=== PATIENT | female | born 1965 | race Hispanic/Latino ===

== ENCOUNTER 2018-02-03 12:39 | Inpatient (IN) | payer MEDICARE, OTHER ==
--- NOTE | 2018-02-03 12:55 | Emergency Department Report ---
ED Asthma HPI - General Chief Complaint: Adult Asthma Stated Complaint: DIFFICULTY BREATHING Time Seen by Provider: 02/03/18 12:53 Source: patient Mode of arrival: Ambulatory Limitations: No Limitations - History of Present Illness Initial Comments: Patient complains of shortness of breath typical for asthma, onset over the past day, with symptoms progressing over the night, and unrelieved by usual rescue inhalers at home. She does not have nebulizers at home. Attacks are infrequent, and last episode was approximately 16 months earlier. Patient is a daily smoker, 20 pack years, and is also HIV positive since 2002. She has not had any fever symptoms, and no cough or congestion prior to onset. She's not had any known exposures either. CD4 count is 1300, and viral load is undetectable, with patient antiretroviral regimen. Diabetes is controlled with diet, with patient checking glucose approximately twice a week, and it runs in the 110-140 range. Primary care doctor is Dr. Aleksandar Aceves, in [place], for primary care; Dr. 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 Only other significant past medical history is diabetes mellitus, which is diet controlled. Onset/Timin -: Gradual, days(s) Asthma History: adult onset Severity: moderate Context: none known Associated Symptoms: none. denies: dry cough, fever - Related Data Current Asthma Therapy: inhaled bronchodilator Allergies Allergy/AdvReac Type Severity Reaction Status Date / Time No Known Allergies Allergy Unverified 02/03/18 12:42 ED Review of Systems ROS: Stated complaint: DIFFICULTY BREATHING Other details as noted in HPI Comment: All other systems reviewed and negative Constitutional: no symptoms reported ENT: denies: throat pain Respiratory: shortness of breath, wheezing. denies: cough Cardiovascular: denies: chest pain, syncope Endocrine: no symptoms reported Gastrointestinal: denies: abdominal pain, nausea, diarrhea Musculoskeletal: denies: back pain, joint swelling, arthralgia Skin: denies: rash, lesions Neurological: denies: headache, weakness, paresthesias Psychiatric: denies: anxiety, depression Hematological/Lymphatic: denies: easy bleeding, easy bruising ED Past Medical Hx - Past Medical History Hx Diabetes: Yes Hx Psychiatric Treatment: (bipolar) Hx Asthma: Yes Hx HIV: Yes Additional medical history: Back pain - Social History Smoking Status: Current Every Day Smoker ED Physical Exam - General Limitations: No Limitations General appearance: alert, in distress (moderate respiratory distress, but able to speak full sentences fairly easily.) - Head Head exam: Present: atraumatic, normocephalic - Eye Eye exam: Present: PERRL, EOMI - ENT ENT exam: Present: normal exam, mucous membranes moist - Neck Neck exam: Present: normal inspection. Absent: tenderness, meningismus - Respiratory Respiratory exam: Present: respiratory distress, wheezes. Absent: rales, rhonchi - Cardiovascular Cardiovascular Exam: Present: regular rate, tachycardia - GI/Abdominal GI/Abdominal exam: Present: soft, normal bowel sounds. Absent: tenderness, rebound - Extremities Exam Extremities exam: Present: normal inspection, other (obese,). Absent: pedal edema - Neurological Exam Neurological exam: Present: alert, oriented X3, CN II-XII intact. Absent: motor sensory deficit - Psychiatric Psychiatric exam: Present: normal affect, normal mood - Skin Skin exam: Present: warm, dry ED Course Vital Signs 02/03/18 02/03/18 02/03/18 12:42 13:20 13:33 Temperature 36.8 C Pulse Rate 116 H Pulse Rate [ 116 H 117 H Anterior Bilateral Throughout] Respiratory 17 Rate Respiratory 18 18 Rate [Anterior Bilateral Throughout] Blood Pressure 120/78 O2 Sat by Pulse 91 Oximetry - Reevaluation(s) Reevaluation #1: 02/03/18 14:12 Only modestly improved after 5 mg albuterol inhaler. Still feels symptomatically short of breath. Patient has extensive bilateral wheezes on auscultation, little improved from baseline. O2 saturation 93% on 2 L of oxygen, patient remains tachycardic at 116 bpm but reports that her heart rate is normally fast. 02/03/18 14:25 02/03/18 15:06 Reevaluation #2: 02/03/18 15:23 Patient is again only modestly improved with second round of albuterol, blood gas shows that patient is still hypoxic on room air, and is also relatively retaining with PO2 of 50, PCO2 of 44, pH of 7.44, with patient tachypneic and still relatively breathless. ED Medical Decision Making - Lab Data Result diagrams: 02/03/18 13:20 02/03/18 Unknown - Radiology Data interpreted by me: No acute cardiopulmonary abnormality on chest x-ray, heart size is normal, no pulmonary vascular congestion. - Medical Decision Making This patient with COPD, and asthma, with comorbidities of diabetes mellitus and HIV is exacerbation of difficulty breathing, this significantly hypoxic, and remained so after 2 rounds of intensive albuterol bronchodilation. She will need hospitalization for further care and continued treatment. - Differential Diagnosis pneumonia, bronchitis, COPD exacerbation, asthma, heart failure Critical Care Time: Yes Critical care time in (mins) excluding proc time.: 30 Critical care attestation.: If time is entered above; I have spent that time in minutes in the direct care of this critically ill patient, excluding procedure time. Critical Care Time: 30 minutes of critical care time was provided and assessing and stabilizing this patient, as well as provide initial treatments for clearing of her respiratory asthma and hypoxemia. ED Disposition Clinical Impression: COPD with exacerbation, Hypoxemia, HIV (human immunodeficiency virus infection) Diabetes mellitus Qualifiers: Diabetes mellitus type: type 2 Diabetes mellitus assisted insulin use: without terminal carman use Diabetes mellitus complication status: without complication Qualified Code(s): E11.9 - Type 2 diabetes mellitus without complications Disposition: 09 OP ADMIT IP TO THIS HOSP Is pt being admited?: Yes Does the pt Need Aspirin: No Condition: Stable Instructions: Chronic Obstructive Pulmonary Disease (ED), Diabetes Mellitus Type 2 in Adults (ED) Referrals: PRIMARY CARE, [Primary Care Provider] - 3-5 Days Time of Disposition: 15:38
[2018-02-03] MEDS ORDERED: PROVENTIL IH ONE ×2 (13:00→14:05)
[2018-02-03] MEDS ORDERED: ATROVENT IH ONE ×2 (13:01→17:26)
[2018-02-03 13:38] LABS: Basophils % (Auto) 0.7 % (0.0-1.8); Eosinophils # (Auto) 0.1 K/mm3 (0.0-0.4); Eosinophils % (Auto) 1.8 % (0.0-4.3); Hematocrit 44.4 % (30.3-42.9); Lymphocytes # (Auto) 1.4 K/mm3 (1.2-5.4); Lymphocytes % (Auto) 22.3 % (13.4-35.0); Mean Corpuscular HGB Conc 34 % (30-34); Mean Corpuscular Hemoglobin 31 pg (28-32); Mean Corpuscular Volume 92 fl (79-97); Monocytes # (Auto) 0.8 K/mm3 (0.0-0.8); Monocytes % (Auto) 13.8 % (0.0-7.3); Platelet Count 215 K/mm3 (140-440); Red Blood Count 4.81 M/mm3 (3.65-5.03); Red Cell Distribution Width 13.7 % (13.2-15.2)
[2018-02-03] MEDS ORDERED: NACL 0.9% IV ONE (14:08)
[2018-02-03] MEDS ORDERED: MAGNESIUM SULFATE IV ONE (14:08)
[2018-02-03 14:41] LABS: Alanine Aminotransferase 24 units/L (7-56); Albumin 4.3 g/dL (3.9-5); BUN/Creatinine Ratio 13; Blood Urea Nitrogen 9 mg/dL (7-17); Calcium 9.6 mg/dL (8.4-10.2); Hemolysis Index 9
[2018-02-03] MEDS ORDERED: NACL 0.9% 1000 ML 1,000 ML IV ONE (15:19)
[2018-02-03] MEDS ORDERED: PROVENTIL IH PRN (15:39)
[2018-02-03] MEDS ORDERED: SODIUM CHLORIDE FLUSH SYRINGE 10 ML IV PRN (15:39)
[2018-02-03] MEDS ORDERED: ZOFRAN IV PRN (15:39)
[2018-02-03] MEDS ORDERED: D50W (25GM) Syringe IV PRN (15:43)
--- NOTE | 2018-02-03 15:52 | History and Physical Report ---
History of Present Illness Chief complaint: I cant breathe History of present illness: 52 YO Female with HIV, Nicotine Dependence, Obesity Hypoventilation, MO, DM, Bipolar Disorder, Asthma presents to ED for evaluation. PT states that she has experienced shortness of breath over the past 1 day with worsening symptoms over the past 8 hours. Pt states that she has increased inhaler use without improvement. Pt denies fever, chills, CP, Palpitations, NVD, Syncope, BRBPR, Productive Cough, leg swelling, calf pain, unintentional weight loss, night sweats, prolonged travel/immobility, individual/family history of DVT/PE, skin rash, or recent ill contacts. Pt seen and evaluated in ED and found to have Acute Respiratory Failure secondary to Asthma Exacerbation. Pt admitted to medical floor. Past History Past Medical History: diabetes, HIV/AIDS, other (asthma, obesity hypoventilation ) Past Surgical History: No surgical history, Other (reviewed) Social history: single, smoking Family history: no significant family history (reviewed) Medications and Allergies Allergies Allergy/AdvReac Type Severity Reaction Status Date / Time No Known Allergies Allergy Unverified 02/03/18 12:42 Active Meds: Active Medications Sodium Chloride (Nacl 0.9% 1000 Ml) 1,000 mls @ 125 mls/hr IV ONCE ONE Stop: 02/03/18 23:18 Review of Systems Constitutional: no weight loss, no weight gain, no fever, no chills Ears, nose, mouth and throat: no ear pain, no ear discharge, no tinnitis, no decreased hearing, no nasal congestion Breasts: no change in shape, no swelling, no mass Cardiovascular: no chest pain, no orthopnea, no palpitations, no rapid/ irregular heart beat Respiratory: shortness of breath, wheezing, no cough, no cough with sputum, no excessive sputum Gastrointestinal: no abdominal pain, no nausea, no vomiting, no diarrhea Genitourinary Female: no dyspareunia, no dysmenorrhea, no pelvic pain, no flank pain, no menorrhagia Rectal: no pain, no incontinence, no bleeding Musculoskeletal: no neck stiffness, no neck pain, no shooting arm pain, no arm numbness/tingling, no low back pain, no shooting leg pain, no leg numbness/ tingling Integumentary: no rash, no pruritis, no redness, no sores, no wounds, no jaundice Neurological: no head injury, no transient paralysis, no paralysis, no weakness , no parathesias, no numbness, no tingling, no seizures Psychiatric: no anxiety, no memory loss, no change in sleep habits, no sleep disturbances, no insomnia, no hypersomnia, no change in appetite, no change in libido Endocrine: no cold intolerance, no heat intolerance, no polyphagia, no excessive thirst, no polydipsia, no polyuria, no nocturia Hematologic/Lymphatic: no easy bruising, no easy bleeding, no lymphadenopathy, no lymphedema Allergic/Immunologic: no urticaria, no allergic rhinitis, no wheezing, no persistent infections, no anaphylaxis Exam - Constitutional Vitals: Temp Pulse Resp BP Pulse Ox 98.2 F 117 H 18 120/78 91 02/03/18 12:42 02/03/18 15:24 02/03/18 15:24 02/03/18 12:42 02/03/18 12:42 General appearance: Present: mild distress, obese - EENT Eyes: Present: PERRL ENT: hearing intact, clear oral mucosa - Neck Neck: Present: supple, normal ROM - Respiratory Respiratory: bilateral: diminished, wheezing - Cardiovascular Heart Sounds: Present: S1 & S2. Absent: rub, click - Extremities Extremities: pulses symmetrical, No edema Peripheral Pulses: within normal limits - Abdominal General gastrointestinal: Present: soft, non-tender, non-distended, normal bowel sounds Female genitourinary: Present: normal - Integumentary Integumentary: Present: clear, warm, dry - Musculoskeletal Musculoskeletal: gait normal, strength equal bilaterally - Psychiatric Psychiatric: appropriate mood/affect, intact judgment & insight - Neurologic Neurologic: CNII-XII intact, moves all extremities Results - Labs CBC & Chem 7: 02/03/18 13:20 02/03/18 Unknown Labs: Abnormal lab results 02/03/18 02/03/18 02/03/18 Range/Units 13:20 15:25 Unknown Hgb 15.0 H (10.1-14.3) gm/dl Hct 44.4 H (30.3-42.9) % [place] % (Auto) 13.8 H (0.0-7.3) % POC ABG pO2 50 L (80-105) Sodium 135 L (137-145) mmol/L Chloride 94.7 L (98-107) mmol/L Glucose 138 H (65-100) mg/dL Assessment and Plan - Patient Problems (1) Respiratory failure Current Visit: Yes Status: Acute Qualifiers: Chronicity: acute Respiratory failure complication: hypoxia Qualified Code(s): J96.01 - Acute respiratory failure with hypoxia Plan to address problem: Supplemental oxygen, nebulizer therapy, NIPPV, ABG, D dimer, CT Angio Chest, Chest X ray, early ambulation, (2) Asthma exacerbation Current Visit: Yes Status: Acute Qualifiers: Asthma severity: moderate Asthma persistence: persistent Qualified Code(s ): J45.41 - Moderate persistent asthma with (acute) exacerbation Plan to address problem: Supplemental oxygen, nebulizer therapy, magnesium sulfate, NIPPV, ABG, monitor pulse oximetry, (3) Obesity hypoventilation syndrome Current Visit: Yes Status: Acute Plan to address problem: supplemental oxygen, nebulizer therapy, NIPPV (4) HIV (human immunodeficiency virus infection) Current Visit: Yes Status: Acute Plan to address problem: Resume prehospital therapy, outpatient ID F/U care (5) Diabetes Current Visit: Yes Status: Acute Plan to address problem: ADA diet, insulin, accu check, HGB A1c (6) Nicotine dependence with withdrawal Current Visit: Yes Status: Acute Qualifiers: Nicotine product type: cigarettes Qualified Code(s): F17.213 - Nicotine dependence, cigarettes, with withdrawal Plan to address problem: Nicotine Transdermal patch, supportive care. Pt acknowledges that 02/03/18 in her official quit date, Smoking cessation counseling. (7) DVT prophylaxis Current Visit: Yes Status: Acute
[2018-02-03] MEDS ORDERED: HABITROL TD ONE (16:30)
[2018-02-03] MEDS ORDERED: XOPENEX IH ONE (17:26)
--- NOTE | 2018-02-03 17:43 | Cat Scan Report ---
FINAL REPORT EXAM: CT ANGIO CHEST HISTORY: Dyspnea TECHNIQUE: Enhanced CT of the chest at 1.25 mm axial intervals following a pulmonary embolism protocol. Coronal and sagittal imaging were also obtained. Coronal oblique MIP projections were obtained. Contrast: 75 ml of Isovue 300 given IV. PRIORS: None. FINDINGS: There is no evidence for pulmonary embolism in the main pulmonary artery, right and left pulmonary arteries or their major distributions. However, CT does not exclude distal pulmonary emboli. Otherwise, the lung parenchyma are expanded and clear with no evidence for parenchymal nodules, infiltrates, congestion, or pleural effusion. Calcified pleural based 4 mm granuloma in the medial right midlung is noted. There are several mildly enlarged lymph nodes in the paratracheal region of the mediastinum which are nonspecific. These measure up to 13 mm (axial image 21) and may be reactive. There is no evidence for bilateral hilar or axillary adenopathy. Cardiovascular structures are within normal limits. No evidence for ventricular chamber enlargement is seen. There is a normal anatomic variant with the left vertebral artery extending directly from the aortic arch proximal to the left subclavian artery origin. Images through the lung bases include the upper abdomen which show demonstrates pneumobilia in the left lobe of the liver. This is abnormal unless the patient has had a sphincterotomy. Correlation with the patient's history is needed. Bony structures demonstrate no focal abnormalities. IMPRESSION: 1. no evidence for pulmonary embolism. 2. Mild lymph node enlargement in the paratracheal region, nonspecific. These may be reactive. 3. Pneumobilia in the left lobe of the liver. This is abnormal unless the patient has had a sphincterotomy.
[2018-02-03] MEDS: ZITHROMAX 500 MG in NACL 0.9% 250ML 250 ML IV SCH (17:50)
[2018-02-03] MEDS: HumaLOG SUB-Q SCH ×2 (18:00→22:44)
[2018-02-03] MEDS ORDERED: HumaLOG SUB-Q ONE (18:06)
[2018-02-03] MEDS: ATROVENT IH SCH (20:42)
[2018-02-03] MEDS: XOPENEX IH SCH (20:42)
[2018-02-03] MEDS: DESYREL PO SCH (22:43)
[2018-02-03] MEDS: PEPCID PO SCH (22:43)
[2018-02-04] MEDS: ATROVENT IH SCH ×4 (01:00→19:15)
[2018-02-04] MEDS: XOPENEX IH SCH ×4 (01:00→19:15)
[2018-02-04] MEDS: SODIUM CHLORIDE FLUSH SYRINGE 10 ML IV SCH ×2 (02:59→09:43)
[2018-02-04] MEDS: TYLENOL PO PRN (04:25)
--- NOTE | 2018-02-04 08:44 | Progress Note ---
Assessment and Plan Assessment and plan: Acute respiratory failure due to COPD exacerbation. Supplemental Oxygen COPD exacerbation. Started on solumedrol, Duoneb, supplemental Oxygen. Diabetes mellitus type 2. Check fingerstick qac and hs HIV/AIDS. Continue HAART Morbidly obese. counseled her on diet and exercise Full code status History Interval history: Still having shortness of breath, No chest pain Hospitalist Physical - Physical exam Narrative exam: General: Not in acute distress, Morbidly Obese, HEENT:Normocephalic, atraumatic Neck:supple,no JVD Lungs: Decreased breath sounds, bilateral rales, wheeze bilat Heart:S1 and S2 regular, no murmurs, rubs or gallop Abd: soft, non tender, non distended, normal bowel sounds Ext: No edema, no clubbing, no cyanosis Neuro: AAO x 3, moves all extremities. - Constitutional Vitals: Temp Pulse Resp BP Pulse Ox 98.8 F 107 H 20 147/87 91 02/04/18 03:31 02/04/18 03:31 02/04/18 04:25 02/04/18 03:31 02/04/18 03:31 General appearance: Present: obese Results - Labs CBC & Chem 7: 02/05/18 05:30 02/05/18 05:30 Labs: Laboratory Last Values WBC 6.1 K/mm3 (4.5-11.0) 02/03/18 13:20 RBC 4.81 M/mm3 (3.65-5.03) 02/03/18 13:20 Hgb 15.0 gm/dl (10.1-14.3) H 02/03/18 13:20 Hct 44.4 % (30.3-42.9) H 02/03/18 13:20 MCV 92 fl (79-97) 02/03/18 13:20 MCH 31 pg (28-32) 02/03/18 13:20 MCHC 34 % (30-34) 02/03/18 13:20 RDW 13.7 % (13.2-15.2) 02/03/18 13:20 Plt Count 215 K/mm3 (140-440) 02/03/18 13:20 Lymph % (Auto) 22.3 % (13.4-35.0) 02/03/18 13:20 [place] % (Auto) 13.8 % (0.0-7.3) H 02/03/18 13:20 Eos % (Auto) 1.8 % (0.0-4.3) 02/03/18 13:20 Baso % (Auto) 0.7 % (0.0-1.8) 02/03/18 13:20 Lymph # 1.4 K/mm3 (1.2-5.4) 02/03/18 13:20 [place] # 0.8 K/mm3 (0.0-0.8) 02/03/18 13:20 Eos # 0.1 K/mm3 (0.0-0.4) 02/03/18 13:20 Baso # 0.0 K/mm3 (0.0-0.1) 02/03/18 13:20 Seg Neutrophils % 61.4 % (40.0-70.0) 02/03/18 13:20 Seg Neutrophils # 3.8 K/mm3 (1.8-7.7) 02/03/18 13:20 D-Dimer 473.51 ng/mlDDU (0-234) H 02/03/18 15:51 POC ABG pH 7.444 (7.35-7.45) 02/03/18 15:25 POC ABG pCO2 42.1 (35-45) 02/03/18 15:25 POC ABG pO2 50 (80-105) L 02/03/18 15:25 POC ABG HCO3 28.8 02/03/18 15:25 POC ABG Total CO2 30 02/03/18 15:25 POC ABG O2 Sat 86 02/03/18 15:25 POC ABG Base Excess 5 02/03/18 15:25 FiO2 21 % 02/03/18 15:25 Sodium 135 mmol/L (137-145) L 02/03/18 Unknown Potassium 4.7 mmol/L (3.6-5.0) 02/03/18 Unknown Chloride 94.7 mmol/L (98-107) L 02/03/18 Unknown Carbon Dioxide 26 mmol/L (22-30) 02/03/18 Unknown Anion Gap 19 mmol/L 02/03/18 Unknown BUN 9 mg/dL (7-17) 02/03/18 Unknown Creatinine 0.7 mg/dL (0.7-1.2) 02/03/18 Unknown Estimated GFR > 60 ml/min 02/03/18 Unknown BUN/Creatinine Ratio 13 % 02/03/18 Unknown Glucose 138 mg/dL (65-100) H 02/03/18 Unknown POC Glucose 218 (70-105) H 02/04/18 06:04 Hemoglobin A1c 6.5 % (4-6) H 02/03/18 16:06 Lactic Acid 1.80 mmol/L (0.7-2.0) 02/03/18 Unknown Calcium 9.6 mg/dL (8.4-10.2) 02/03/18 Unknown Magnesium 2.00 mg/dL (1.7-2.3) 02/03/18 Unknown Total Bilirubin 0.40 mg/dL (0.1-1.2) 02/03/18 Unknown AST 20 units/L (5-40) 02/03/18 Unknown ALT 24 units/L (7-56) 02/03/18 Unknown Alkaline Phosphatase 99 units/L (35-129) 02/03/18 Unknown Total Protein 6.5 g/dL (6.3-8.2) 02/03/18 Unknown Albumin 4.3 g/dL (3.9-5) 02/03/18 Unknown Albumin/Globulin Ratio 2.0 % 02/03/18 Unknown
[2018-02-04] MEDS: HumaLOG SUB-Q SCH ×4 (09:09→23:14)
[2018-02-04] MEDS: ZITHROMAX 500 MG in NACL 0.9% 250ML 250 ML IV SCH (09:43)
[2018-02-04] MEDS: PEPCID PO SCH ×2 (09:43→21:29)
[2018-02-04] MEDS ORDERED: BUPROPION HCL 200 MG PO SCH (10:00)
[2018-02-04] MEDS ORDERED: NON-FORMULARY (Omeprazole [Omeprazole] 40 MG) PO SCH (10:00)
[2018-02-04] MEDS ORDERED: NON-FORMULARY (Escitalopram Oxalate [Lexapro] 20 MG) PO SCH (10:00)
[2018-02-04] MEDS: LEXAPRO PO SCH (12:30)
[2018-02-04] MEDS: ABILIFY PO SCH (12:30)
[2018-02-04] MEDS: WELLBUTRIN SR PO SCH (12:31)
[2018-02-04] MEDS: NON-FORMULARY (Emtricitab/Rilpiviri/Tenof Ala [Odefsey Tablet] 1 EACH) PO SCH (16:46)
[2018-02-04] MEDS: HEPARIN SUB-Q SCH ×2 (16:47→21:30)
[2018-02-04] MEDS: HABITROL TD SCH (21:29)
[2018-02-04] MEDS: DESYREL PO SCH (21:29)
[2018-02-04] MEDS ORDERED: DESYREL PO SCH (22:00)
[2018-02-05] MEDS: ATROVENT IH SCH ×3 (00:16→07:19)
[2018-02-05] MEDS: XOPENEX IH SCH ×3 (00:16→07:19)
[2018-02-05 05:58] LABS: Hematocrit 41.8 % (30.3-42.9); Hemoglobin 13.6 gm/dl (10.1-14.3); Mean Corpuscular HGB Conc 33 % (30-34); Mean Corpuscular Hemoglobin 30 pg (28-32); Mean Corpuscular Volume 93 fl (79-97); Platelet Count 213 K/mm3 (140-440); Red Cell Distribution Width 13.7 % (13.2-15.2)
[2018-02-05 06:20] LABS: BUN/Creatinine Ratio 19; Blood Urea Nitrogen 13 mg/dL (7-17); Hemolysis Index 4
[2018-02-05] MEDS: HEPARIN SUB-Q SCH ×3 (06:59→21:51)
[2018-02-05] MEDS: TYLENOL PO PRN (07:02)
--- NOTE | 2018-02-05 08:38 | Progress Note ---
Assessment and Plan Assessment and plan: Acute respiratory failure due to COPD exacerbation. ContinueSupplemental Oxygen COPD exacerbation. Continue, Duoneb, supplemental Oxygen. Increase dose of solumedrol to 80mg iv q 6h Diabetes mellitus type 2. Check fingerstick qac and hs HIV/AIDS. Continue HAART Morbidly obese. counseled her on diet and exercise. DVT prophylaxcis: on Heparin Full code status poss dc home tomorrow History Interval history: Still having shortness of breath, No chest pain, cough Hospitalist Physical - Physical exam Narrative exam: General: Not in acute distress, Morbidly Obese, HEENT:Normocephalic, atraumatic Neck:supple,no JVD Lungs: Decreased breath sounds, bilateral rales, wheeze bilat Heart:S1 and S2 regular, no murmurs, rubs or gallop Abd: soft, non tender, non distended, normal bowel sounds Ext: No edema, no clubbing, no cyanosis Neuro: AAO x 3, moves all extremities. Psych:normal mood - Constitutional Vitals: Temp Pulse Resp BP Pulse Ox 98.6 F 85 20 130/91 93 02/05/18 08:04 02/05/18 08:04 02/05/18 08:04 02/05/18 08:04 02/05/18 08:04 General appearance: Present: obese Results - Labs CBC & Chem 7: 02/05/18 05:30 02/05/18 05:30 Labs: Laboratory Last Values WBC 5.9 K/mm3 (4.5-11.0) 02/05/18 05:30 RBC 4.50 M/mm3 (3.65-5.03) 02/05/18 05:30 Hgb 13.6 gm/dl (10.1-14.3) 02/05/18 05:30 Hct 41.8 % (30.3-42.9) 02/05/18 05:30 MCV 93 fl (79-97) 02/05/18 05:30 MCH 30 pg (28-32) 02/05/18 05:30 MCHC 33 % (30-34) 02/05/18 05:30 RDW 13.7 % (13.2-15.2) 02/05/18 05:30 Plt Count 213 K/mm3 (140-440) 02/05/18 05:30 Lymph % (Auto) 22.3 % (13.4-35.0) 02/03/18 13:20 [place] % (Auto) 13.8 % (0.0-7.3) H 02/03/18 13:20 Eos % (Auto) 1.8 % (0.0-4.3) 02/03/18 13:20 Baso % (Auto) 0.7 % (0.0-1.8) 02/03/18 13:20 Lymph # 1.4 K/mm3 (1.2-5.4) 02/03/18 13:20 [place] # 0.8 K/mm3 (0.0-0.8) 02/03/18 13:20 Eos # 0.1 K/mm3 (0.0-0.4) 02/03/18 13:20 Baso # 0.0 K/mm3 (0.0-0.1) 02/03/18 13:20 Seg Neutrophils % 61.4 % (40.0-70.0) 02/03/18 13:20 Seg Neutrophils # 3.8 K/mm3 (1.8-7.7) 02/03/18 13:20 D-Dimer 473.51 ng/mlDDU (0-234) H 02/03/18 15:51 POC ABG pH 7.444 (7.35-7.45) 02/03/18 15:25 POC ABG pCO2 42.1 (35-45) 02/03/18 15:25 POC ABG pO2 50 (80-105) L 02/03/18 15:25 POC ABG HCO3 28.8 02/03/18 15:25 POC ABG Total CO2 30 02/03/18 15:25 POC ABG O2 Sat 86 02/03/18 15:25 POC ABG Base Excess 5 02/03/18 15:25 FiO2 21 % 02/03/18 15:25 Sodium 143 mmol/L (137-145) D 02/05/18 05:30 Potassium 4.2 mmol/L (3.6-5.0) 02/05/18 05:30 Chloride 100.8 mmol/L (98-107) 02/05/18 05:30 Carbon Dioxide 28 mmol/L (22-30) 02/05/18 05:30 Anion Gap 18 mmol/L 02/05/18 05:30 BUN 13 mg/dL (7-17) 02/05/18 05:30 Creatinine 0.7 mg/dL (0.7-1.2) 02/05/18 05:30 Estimated GFR > 60 ml/min 02/05/18 05:30 BUN/Creatinine Ratio 19 % 02/05/18 05:30 Glucose 140 mg/dL (65-100) H 02/05/18 05:30 POC Glucose 188 (70-105) H 02/04/18 17:09 Hemoglobin A1c 6.5 % (4-6) H 02/03/18 16:06 Lactic Acid 1.80 mmol/L (0.7-2.0) 02/03/18 Unknown Calcium 9.0 mg/dL (8.4-10.2) 02/05/18 05:30 Magnesium 2.00 mg/dL (1.7-2.3) 02/03/18 Unknown Total Bilirubin 0.40 mg/dL (0.1-1.2) 02/03/18 Unknown AST 20 units/L (5-40) 02/03/18 Unknown ALT 24 units/L (7-56) 02/03/18 Unknown Alkaline Phosphatase 99 units/L (35-129) 02/03/18 Unknown Total Protein 6.5 g/dL (6.3-8.2) 02/03/18 Unknown Albumin 4.3 g/dL (3.9-5) 02/03/18 Unknown Albumin/Globulin Ratio 2.0 % 02/03/18 Unknown
[2018-02-05] MEDS: HumaLOG SUB-Q SCH ×4 (08:43→21:52)
[2018-02-05] MEDS: DUONEB *Not for PRN Use IH SCH ×5 (09:00→23:54)
[2018-02-05] MEDS: LEXAPRO PO SCH (09:13)
[2018-02-05] MEDS: PROTONIX PO SCH (09:14)
[2018-02-05] MEDS: WELLBUTRIN SR PO SCH (09:14)
[2018-02-05] MEDS: NON-FORMULARY (Emtricitab/Rilpiviri/Tenof Ala [Odefsey Tablet] 1 EACH) PO SCH (09:14)
[2018-02-05] MEDS: ZITHROMAX PO SCH (09:14)
[2018-02-05] MEDS: ABILIFY PO SCH (09:14)
[2018-02-05] MEDS: HABITROL TD SCH (09:14)
[2018-02-05] MEDS: PEPCID PO SCH ×2 (09:15→21:53)
[2018-02-05] MEDS: ROBITUSSIN PO PRN ×3 (12:30→21:43)
[2018-02-05] MEDS: DESYREL PO SCH (21:50)
[2018-02-06] MEDS: DUONEB *Not for PRN Use IH SCH ×5 (03:58→20:06)
[2018-02-06] MEDS: HEPARIN SUB-Q SCH ×3 (06:17→21:14)
[2018-02-06] MEDS: ROBITUSSIN PO PRN ×3 (06:19→21:13)
[2018-02-06] MEDS: HumaLOG SUB-Q SCH ×4 (09:18→23:46)
--- NOTE | 2018-02-06 10:27 | Progress Note ---
Assessment and Plan Assessment and plan: Acute respiratory failure due to COPD exacerbation. Continue Supplemental Oxygen. O2 luciano drop down to 85% on ambulation. Will consult [facility] for home Oxygen if this persists COPD exacerbation. Continue, Duoneb, supplemental Oxygen. Increased dose of solumedrol to 80mg iv q 8h. Continue Duoneb Q 4h Diabetes mellitus type 2. Check fingerstick qac and hs add Novolin 70/30 bid HIV/AIDS. Continue HAART Morbidly obese. counseled her on diet and exercise. DVT prophylaxcis: on Heparin Full code status poss dc home tomorrow History Interval history: Still having shortness of breath, especially on exertion, Hypoxic on ambulation O2 sats drop down to 85% on room air on ambulation No chest pain, cough Hospitalist Physical - Physical exam Narrative exam: General: Not in acute distress, Morbidly Obese, HEENT:Normocephalic, atraumatic Neck:supple,no JVD Lungs: Decreased breath sounds, bilateral rales, wheeze Heart:S1 and S2 regular, no murmurs, rubs or gallop Abd: soft, non tender, non distended, normal bowel sounds Ext: No edema, no clubbing, no cyanosis Neuro: AAO x 3, moves all extremities. Psych:normal mood - Constitutional Vitals: Temp Pulse Resp BP Pulse Ox 97.5 F L 88 18 110/68 95 02/06/18 07:42 02/06/18 08:10 02/06/18 08:10 02/06/18 07:42 02/06/18 09:35 General appearance: Present: obese Results - Labs CBC & Chem 7: 02/05/18 05:30 02/05/18 05:30 Labs: Laboratory Last Values WBC 5.9 K/mm3 (4.5-11.0) 02/05/18 05:30 RBC 4.50 M/mm3 (3.65-5.03) 02/05/18 05:30 Hgb 13.6 gm/dl (10.1-14.3) 02/05/18 05:30 Hct 41.8 % (30.3-42.9) 02/05/18 05:30 MCV 93 fl (79-97) 02/05/18 05:30 MCH 30 pg (28-32) 02/05/18 05:30 MCHC 33 % (30-34) 02/05/18 05:30 RDW 13.7 % (13.2-15.2) 02/05/18 05:30 Plt Count 213 K/mm3 (140-440) 02/05/18 05:30 Lymph % (Auto) 22.3 % (13.4-35.0) 02/03/18 13:20 [place] % (Auto) 13.8 % (0.0-7.3) H 02/03/18 13:20 Eos % (Auto) 1.8 % (0.0-4.3) 02/03/18 13:20 Baso % (Auto) 0.7 % (0.0-1.8) 02/03/18 13:20 Lymph # 1.4 K/mm3 (1.2-5.4) 02/03/18 13:20 [place] # 0.8 K/mm3 (0.0-0.8) 02/03/18 13:20 Eos # 0.1 K/mm3 (0.0-0.4) 02/03/18 13:20 Baso # 0.0 K/mm3 (0.0-0.1) 02/03/18 13:20 Seg Neutrophils % 61.4 % (40.0-70.0) 02/03/18 13:20 Seg Neutrophils # 3.8 K/mm3 (1.8-7.7) 02/03/18 13:20 D-Dimer 473.51 ng/mlDDU (0-234) H 02/03/18 15:51 POC ABG pH 7.444 (7.35-7.45) 02/03/18 15:25 POC ABG pCO2 42.1 (35-45) 02/03/18 15:25 POC ABG pO2 50 (80-105) L 02/03/18 15:25 POC ABG HCO3 28.8 02/03/18 15:25 POC ABG Total CO2 30 02/03/18 15:25 POC ABG O2 Sat 86 02/03/18 15:25 POC ABG Base Excess 5 02/03/18 15:25 FiO2 21 % 02/03/18 15:25 Sodium 143 mmol/L (137-145) D 02/05/18 05:30 Potassium 4.2 mmol/L (3.6-5.0) 02/05/18 05:30 Chloride 100.8 mmol/L (98-107) 02/05/18 05:30 Carbon Dioxide 28 mmol/L (22-30) 02/05/18 05:30 Anion Gap 18 mmol/L 02/05/18 05:30 BUN 13 mg/dL (7-17) 02/05/18 05:30 Creatinine 0.7 mg/dL (0.7-1.2) 02/05/18 05:30 Estimated GFR > 60 ml/min 02/05/18 05:30 BUN/Creatinine Ratio 19 % 02/05/18 05:30 Glucose 140 mg/dL (65-100) H 02/05/18 05:30 POC Glucose 244 (70-105) H 02/06/18 06:12 Hemoglobin A1c 6.5 % (4-6) H 02/03/18 16:06 Lactic Acid 1.80 mmol/L (0.7-2.0) 02/03/18 Unknown Calcium 9.0 mg/dL (8.4-10.2) 02/05/18 05:30 Magnesium 2.00 mg/dL (1.7-2.3) 02/03/18 Unknown Total Bilirubin 0.40 mg/dL (0.1-1.2) 02/03/18 Unknown AST 20 units/L (5-40) 02/03/18 Unknown ALT 24 units/L (7-56) 02/03/18 Unknown Alkaline Phosphatase 99 units/L (35-129) 02/03/18 Unknown Total Protein 6.5 g/dL (6.3-8.2) 02/03/18 Unknown Albumin 4.3 g/dL (3.9-5) 02/03/18 Unknown Albumin/Globulin Ratio 2.0 % 02/03/18 Unknown
[2018-02-06] MEDS: LEXAPRO PO SCH (11:02)
[2018-02-06] MEDS: PEPCID PO SCH ×2 (11:03→21:13)
[2018-02-06] MEDS: HABITROL TD SCH (11:03)
[2018-02-06] MEDS: PROTONIX PO SCH (11:03)
[2018-02-06] MEDS: ZITHROMAX PO SCH (11:03)
[2018-02-06] MEDS: NON-FORMULARY (Emtricitab/Rilpiviri/Tenof Ala [Odefsey Tablet] 1 EACH) PO SCH (11:10)
[2018-02-06] MEDS: ABILIFY PO SCH (11:12)
[2018-02-06] MEDS: WELLBUTRIN SR PO SCH (11:15)
[2018-02-06] MEDS: DESYREL PO SCH (21:13)
[2018-02-07] MEDS: DUONEB *Not for PRN Use IH SCH ×6 (00:04→21:00)
[2018-02-07] MEDS: ROBITUSSIN PO PRN ×3 (03:55→18:53)
[2018-02-07] MEDS: HEPARIN SUB-Q SCH ×3 (06:03→21:58)
--- NOTE | 2018-02-07 07:32 | XRay Report ---
AP CHEST: HISTORY: Asthma, COPD exacerbation, dyspnea AP view of the chest demonstrates a normal mediastinal and cardiac contour with clear lungs and normal bony and soft tissue structures. IMPRESSION: Unremarkable AP chest.
[2018-02-07] MEDS: TYLENOL PO PRN (09:32)
[2018-02-07] MEDS: HumaLOG SUB-Q SCH ×3 (09:34→18:52)
[2018-02-07] MEDS: WELLBUTRIN SR PO SCH (11:56)
[2018-02-07] MEDS: ABILIFY PO SCH (11:56)
[2018-02-07] MEDS: HABITROL TD SCH (11:57)
[2018-02-07] MEDS: ZITHROMAX PO SCH (11:57)
[2018-02-07] MEDS: PROTONIX PO SCH (11:58)
[2018-02-07] MEDS: PEPCID PO SCH ×2 (11:58→21:57)
[2018-02-07] MEDS: LEXAPRO PO SCH (11:59)
[2018-02-07] MEDS: NON-FORMULARY (Emtricitab/Rilpiviri/Tenof Ala [Odefsey Tablet] 1 EACH) PO SCH (12:02)
--- NOTE | 2018-02-07 15:08 | Progress Note ---
Assessment and Plan /Acute respiratory failure due to COPD exacerbation. Continue Supplemental Oxygen. O2 sats >92% on ambulation today. /COPD exacerbation. Continue, Duoneb, supplemental Oxygen. taper dose of solumedrol to 80mg iv q 8h. Continue Duoneb Q 4h /Diabetes mellitus type 2. Check fingerstick qac and hs cont Novolin 70/30 bid /HIV/AIDS. Continue HAART /Morbidly obese. counseled her on diet and exercise. DVT prophylaxcis: on Heparin Full code status Hospitalist Physical General: Not in acute distress, Morbidly Obese, HEENT:Normocephalic, atraumatic Neck:supple,no JVD Lungs: Decreased breath sounds, bilateral rales, wheeze Heart:S1 and S2 regular, no murmurs, rubs or gallop Abd: soft, non tender, non distended, normal bowel sounds Ext: No edema, no clubbing, no cyanosis Neuro: AAO x 3, moves all extremities. Psych:normal mood Subjective Date of service: 02/07/18 Interval history: Still c/o shortness of breath, especially on exertion, Not Hypoxic on ambulation today No chest pain, has cough Objective - Constitutional Vitals: Vital Signs - 12hr 02/07/18 02/07/18 02/07/18 04:19 04:31 08:28 Temperature 98.6 F Pulse Rate 86 Pulse Rate [ 90 99 H Anterior Bilateral Throughout] Respiratory 19 Rate Respiratory 18 20 Rate [Anterior Bilateral Throughout] Blood Pressure 138/84 O2 Sat by Pulse 83 L Oximetry - Labs CBC & Chem 7: 02/05/18 05:30 02/05/18 05:30 Labs: Abnormal lab results 02/06/18 02/06/18 02/07/18 Range/Units 16:03 22:10 06:17 POC Glucose 267 H 302 H 237 H (70-105) 02/07/18 Range/Units 12:03 POC Glucose 196 H (70-105)
[2018-02-07] MEDS: DESYREL PO SCH (21:57)
[2018-02-08] MEDS: ROBITUSSIN PO PRN ×2 (00:35→08:45)
[2018-02-08] MEDS: HumaLOG SUB-Q SCH ×3 (00:41→13:18)
[2018-02-08] MEDS: DUONEB *Not for PRN Use IH SCH ×4 (01:26→12:06)
[2018-02-08] MEDS: HEPARIN SUB-Q SCH ×2 (06:19→14:15)
[2018-02-08] MEDS: NON-FORMULARY (Emtricitab/Rilpiviri/Tenof Ala [Odefsey Tablet] 1 EACH) PO SCH (10:48)
[2018-02-08] MEDS: ZITHROMAX PO SCH (10:49)
[2018-02-08] MEDS: HABITROL TD SCH (10:49)
[2018-02-08] MEDS: PROTONIX PO SCH (10:49)
[2018-02-08] MEDS: LEXAPRO PO SCH (10:50)
[2018-02-08] MEDS: ABILIFY PO SCH (10:50)
[2018-02-08] MEDS: WELLBUTRIN SR PO SCH (10:50)
[2018-02-08] MEDS: PEPCID PO SCH (10:50)
[2018-02-08 12:34] VITALS: BP 103/69
--- NOTE | 2018-02-08 14:57 | Discharge Summary ---
Providers - Providers Date of Admission: 02/03/18 15:40 Date of discharge: 02/08/18 Attending physician: ORLANDO GOEL 02/07/18 07:00 Consult to Case Management [CONS] Routine Services Needed at Discharge: Home O2 Notified:: kendall 02/08/18 14:15 Consult to Case Management [CONS] Routine Services Needed at Discharge: Other Notified:: [place] If yes, spoke with:: [place] Time called:: 14:16 Comment:: Hospice eval and admit if appropriate Primary care physician: [employer] Hospitalization Condition: Stable Hospital course: 52 YO Female with HIV, Nicotine Dependence, DM, Bipolar Disorder, Asthma presents to ED for evaluation. PT states that she has experienced shortness of breath over the past 1 day with worsening symptoms over the past 8 hours. Discharge diagnosis: /Acute respiratory failure due to COPD exacerbation. resolved, O2 sats >92% on ambulation /COPD exacerbation. Continue, Duoneb, supplemental Oxygen. taper dose of solumedrol to 80mg iv q 8h. Continue Duoneb Q 4h /Diabetes mellitus type 2. Check fingerstick qac and hs cont Novolin 70/30 bid /HIV/AIDS. Continue HAART /Morbidly obese. counseled her on diet and exercise. DVT prophylaxcis: on Heparin Full code status Hospitalist Physical General: Not in acute distress, Morbidly Obese, HEENT:Normocephalic, atraumatic Neck:supple,no JVD Lungs: Decreased breath sounds, bilateral rales, wheeze Heart:S1 and S2 regular, no murmurs, rubs or gallop Abd: soft, non tender, non distended, normal bowel sounds Ext: No edema, no clubbing, no cyanosis Neuro: AAO x 3, moves all extremities. Psych:normal mood Disposition: DC-50 TO HOSPICE (HOME) Time spent for discharge: 32 minutes Core Measure Documentation - Palliative Care Palliative Care/ Comfort Measures: Hospice Care - Core Measures Any of the following diagnoses?: history only Exam - Constitutional Vitals: Temp Pulse Resp BP Pulse Ox 97.6 F 94 H 18 103/69 92 02/08/18 11:53 02/08/18 12:24 02/08/18 12:24 02/08/18 11:53 02/08/18 11:53 Plan Activity: advance as tolerated Weight Bearing Status: Non-Weight Bearing Diet: diabetic Follow up with: PRIMARY CARE,MD [Primary Care Provider] - 3-5 Days Prescriptions: ALBUTEROL Inhaler [ProAir HFA Inhaler] 2 puff IH QID PRN 30 Days #30 inhalation PRN Reason: Shortness Of Breath Azithromycin [Zithromax TAB] 500 mg PO QDAY #3 tablet Budesoni/Formotero 160-4.5(Nf) [Symbicort 160-4.5 (Nf)] 2 puff IH BID 30 Days inha Insulin NPH/Regular [NovoLIN 70/30] 12 unit SUB-Q BIDDIAB 30 Days #30 units predniSONE [Deltasone] 50 mg PO QDAY #7 tab
== END 2018-02-08 16:16 | disposition hospice, home (50) | DRG 189 ==
LOC: ED 12:39 → 3A 15:40
PROVIDERS: ADMIT Internal Medicine; ATTEND Internal Medicine
PROC: 4A033R1 Measurement of Arterial Saturation, Peripheral, Percutaneous Approach (ICD-10-PCS; principal; 2018-02-03)
DX: J96.01 Acute respiratory failure with hypoxia (principal); B20 Human immunodeficiency virus [HIV] disease; J44.1 Chronic obstructive pulmonary disease with (acute) exacerbation; J45.41 Moderate persistent asthma with (acute) exacerbation; J45.901 Unspecified asthma with (acute) exacerbation; E66.2 Morbid (severe) obesity with alveolar hypoventilation; F17.213 Nicotine dependence, cigarettes, with withdrawal; Z68.43 Body mass index [BMI] 50.0-59.9, adult; E11.9 Type 2 diabetes mellitus without complications; F31.9 Bipolar disorder, unspecified; M54.9 Dorsalgia, unspecified; Z71.3 Dietary counseling and surveillance
CPT/HCPCS: 36415; 71045; 71275; 80048; 80053; 82140; 82803; 82962; 83036; 83735; 85025; 85027; 85379; 87040; 94640; 94760; J0456; J1644; J1815; J2920; J2930; J3475; J7030; J7050; Q9967